=== PATIENT | female | born 1955 | race Caucasian/White ===

== ENCOUNTER 2017-03-06 01:28 | Day surgery (SDC) | payer OTHER ==
[~2017-03-06] VITALS: Ht 162.6 cm; Wt 88.0 kg
[~2017-03-06 01:28] MED LIST: CALC600T12 PO; CETI10CA PO; CHOL10008 PO; LISI40TA PO; MAGN400O4 PO; OMEP20CA11 PO; POLY17PO6 PO; PRAV20TA2 PO
[2017-03-06] MEDS ORDERED: Propofol 10,000 mCg/mL 20 mL Inj ONE (01:29)
[2017-03-06] MEDS ORDERED: Lactated Ringer's 1,000 ML IV ONE (06:00)
[2017-03-06 10:17] VITALS: BP 142/72; PULSE 105; RESP 16; O2SAT 97
[2017-03-06] MEDS ORDERED: HYDR12.5 PO (10:26)
--- NOTE | 2017-03-06 10:38 | PCM.HPANE ---
Patient Data Date of Service: March 06, 2017 Surgeon Admitting Provider: Attending Provider:Juan Burr MD Primary Care Physician:Surekha Reyez MD Other Provider:Teena Chin Anesthesia Reason for Visit Colon Polyp Ht/WT & BMI Height (Feet): 5 Height (Inches): 4 Weight (Kilograms): 87.997 Body Mass Index 33.00 Allergies Coded Allergies: hydrocodone (Verified Allergy, Unknown, "makes me weird", 09/10/15) latex (Verified Allergy, Unknown, UNKNOWN, 09/10/15) vancomycin (Verified Adverse Reaction, Severe, N&V,VERTIGO, 09/10/15) Past Anesthesia History Anesthesia History: Denies:: Abnormal Airway, Anesthesia Reactions, Difficult Intubation, Fam Anesthesia Reaction, Fam Malignant Hypertherm, Malignant Hyperthermia Diabetes History Hx Diabetes?: No MRSA MRSA: Yes (all over many years ago ) Medications Blood Thinner: Aspirin Hypertension Medication: Yes Home Meds Incl Beta Aureliano: No Reported Medications Hydrochlorothiazide 12.5 Mg Rxopswe80.5 Mg PO DAILY 30 Days Ref 0 03/06/17 Cetirizine HCl (Zyrtec)10 Mg Bbnqbtn37 Mg PO HS #30 CAPSULE Ref 0 03/05/17 Pravastatin 20 Mg Lkmybw17 Mg PO DAILY Ref 0 03/05/17 Omeprazole 20 Mg Capsule.dr20 Mg PO BID Ref 0 03/05/17 Lisinopril 40 Mg Yznjzm79 Mg PO DAILY 30 Days Ref 0 03/05/17 Discontinued Reported Medications Cholecalciferol (Vitamin D3) (Vitamin D3)1,000 Unit Tab.chew1,000 Unit PO DAILY 03/05/17 Polyethylene Glycol 3350 (Miralax)17 Gm Powd.pack17 Gm PO 03/05/17 Magnesium Hydroxide (Milk of Magnesia)400 Mg/5 Ml Oral.jbci793 Mg PO 03/05/17 Calcium Carbonate (Calcium)600 Mg Tablet1,250 Mg PO DAILY 03/05/17 Calcium Carbonate (Tums)500 Mg Tab.ffqi589 Mg PO PRN PRN UNKNOWN 30 Days 09/05/15 Polyethylene Glycol 3350 (Miralax)17 Gm Powd.pack17 Gm PO DAILY 09/01/15 Magnesium Hydroxide (Milk of Magnesia)400 Mg/5 Ml Oral.aigs431 Mg PO DAILY PRN PRN 09/01/15 Calcium Carb&Cit/Mag12/Vit D3 (Calcium 500 mg Tablet)1 Each Tablet1 Each PO BID 07/21/15 Cholecalciferol (Vitamin D3) (Vitamin D3)1,000 Unit Tab.chew1,000 Unit PO DAILY 05/24/15 Lisinopril 20 Mg Rdzlxt82 Mg PO DAILY 30 Days Ref 0 05/24/15 Discontinued Scripts Ondansetron ODT (Zofran ODT)4 Mg Tablet4 Mg PO Q4H PRN For Nausea #20 TABLET Prov:Roberto Barnett DO 09/10/15 oxyCODONE 5 Mg Capsule5 Mg PO Q4H PRN For Pain #12 CAPSULE Ref 0 Prov:Juan Burr MD 09/08/15 History History of ENT Problems?: No HEENT History: Positive for:: Sinus Problem (HX OF CHRONIC SINUSITIS) TMJ (grinds and clenches teeth) Denies:: Abnormal Airway Cataracts Difficult Intubation Dysphagia Hearing Problem Denture Type: None Teeth Condition: Missing Teeth Hx of Heart Problems?: Yes Cardiovascular History: Positive for:: Hypertension Denies:: AICD Abdominal Aortic Aneurism Atrial Fibrillation Cardiac Surgery Chest Pain Congestive Heart Failure Edema Heart Murmur Irregular Heartbeat Pacemaker Rheumatic Fever Thrombophlebitis Valvular Heart Disease Hx of Respiratory Problem?: No Respiratory History: Denies:: Asthma COPD Cough Dyspnea Emphysema Hemoptysis Oxygen Administration Pneumonia Tuberculosis Use of C-PAP Machine (SNORES) Hx Neurologic Problems?: Yes Neurological History: Positive for:: Headaches Denies:: CVA Multiple Sclerosis Parkinson's Disease Seizures Hx of GI Problems?: Yes Hx of Problems?: No HX of Peritoneal Dialysis: No Female Hx: Positive for:: Problems with Breasts? (S/P lumpectomy) Denies:: Currently Skin History: Positive for:: History Skin Disorders? 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 open - hx MRSA /ECZEMA) Denies:: Pressure Ulcers Hx Musculoskeletal Problems?: Yes Musculoskeletal History: Denies:: Fibromyalgia Joint Replacement Psycho Social History: Denies:: Anxiety Hx Depression Hx Surgeries?: Yes (right colectomy) Hx Any Other Health Problems?: Yes Other History: Denies:: Cancer Endocrine Disease Hospitalization Thyroid Disease History Blood Transfusions: Denies:: Blood Transfusions Hx Diabetes: No Hx Alcohol Use: No (maybe once a year)Hx Substance Use: Yes Smoking Status: Current Every Day Smoker Have You Smoked inLast 12 mo: Yes (QUIT RECENTLY) Stop/Bang Treated for Sleep Apnea?: No Do You Have a CPAP Machine?: No S-Snoring: Do You Snore Loudly: Yes T-Tired: feel tired, fatigued: No O-Obsered: Observed not breath: Yes P-Blood Pressure: treated: Yes B- Body Mass Index > 35 kg/m2: No A- Age over 50: Yes N- Neck Large Circumference: No G- Gender Male: No THAE Total Score: 4 THEA Risk Assessment: High Risk, =/>3 Yes THEA Category 4 OutPt Procedure: Yes Risk Assessment Category Category 1A: Patient has history of documented sleep apnea, and HAS NOT received any narcotic, sedative or anesthesia administration during this stay. Category 1B: Patient has history of documented sleep apnea, and HAS received any narcotic , sedative or anesthesia administration during this stay Category 2: Patient has SUSPECTED Obstructive Sleep Apnea, and HAS received any narcotic , sedative or anesthesia administration during this stay. Category 3: Patient has SUSPECTED Obstructive Sleep Apnea and HAS NOT received narcotic, sedative or anesthesia administration during this stay. Category 4: Outpatient in Procedural Areas with known sleep apnea or who screen positive for High Risk via the STOP/BANG questionnaire. Exam Exam Vital Signs Vital Signs Date Time Temp Pulse Resp B/P Pulse Ox O2 Delivery O2 Flow Rate FiO2 03/06/17 10:17 105 16 142/72 97 Room Air General Appearance: Alert, Oriented X3, Cooperative HEENT/AIRWAY: MP 3, Neck Movement, Mouth Opening (Wide) Lungs: Clear to Auscultation, Normal Air Movement Heart: Regular Rate/Rhythm, Normal S1, Normal S2 Meds/Labs/Diagnostics Admission Meds Current Medications Lactated Ringer's (Lr) 1,000 ml @ 10 mls/hr Q24H ONCE IV Last administered on 03/06/17t 10:22; Start 03/06/17 at 06:00; Stop 03/07/17 at 05:59 Plan Impression Patient chart reviewed, patient interviewed and anesthestic plan with risks, benefits, and alternatives discussed, and informed consent obtained. NPO per Anesth. Guidelines: Yes ASA Physical Status: ASA2 Mod Systemic Disease Anesthetic Plan: MAC Bene/Risks/Altern/Consents: Yes HP Complete Prior to Induction: Yes Brian Valentin MD March 06, 2017 10:34
[2017-03-06] MEDS ORDERED: Lactated Ringer's 1,000 ML IV SCH (10:39)
[2017-03-06] MEDS ORDERED: MetoCLOpramide 5 mg/mL 2 mL Inj IVPUSH PRN (10:40)
[2017-03-06] MEDS ORDERED: Ondansetron 2 mg/mL 2 mL Inj IVPUSH PRN (10:40)
[2017-03-06 11:22] VITALS: BP 92/50; PULSE 86; RESP 16; O2SAT 95
--- NOTE | 2017-03-06 11:31 | PCM.ANEP1 ---
Post Anesthesia Phase 1 PACU Phase 1 Assessment Date of Service: March 06, 2017 Vital Signs Vital Signs Date Time Temp Pulse Resp B/P Pulse Ox O2 Delivery O2 Flow Rate FiO2 03/06/17 11:22 35.8 86 16 92/50 95 Room Air 03/06/17 10:17 105 16 142/72 97 Room Air Anesthetic Administered: MAC Level of Alertness: Awake, talking MORRIS's with Equal Strength: Yes Pain: No Nausea or Vomiting: No Cardiovascular Function and Hy: Yes Oxygen Delivery: Room Air Lungs: Normal Air Movement Dermatome Level: Full Sensation Complications: No Follow up Care: No Patient Instructions Provided: Yes Brian Valentin MD March 06, 2017 11:31
[2017-03-06 11:32] VITALS: BP 115/74; PULSE 84; RESP 16; O2SAT 99
--- NOTE | 2017-03-06 11:39 | ENDO ---
[address] [address] ENDOSCOPY PROCEDURE PATIENT: MIRLANDE RIOS : 1955 MR#: [id number] ADMIT: 03/06/2017 JOB ID: [id number] DATE: 03/06/2017 PREOPERATIVE DIAGNOSIS(ES): History of tubulovillous adenoma of the cecum. POSTOPERATIVE DIAGNOSIS: Sigmoid colon polyp. OPERATION: Colonoscopy to ileocolonic anastomosis with cold forceps polypectomy. SURGEON: Juan Burr M.D. INDICATIONS: A 62-year-old female, who 16 months ago had a laparoscopic right colectomy for an unresectable tubulovillous adenoma of the cecum. She is here for follow up colonoscopy. FINDINGS: She had a good prep. The scope was advanced into the terminal ileum. The only abnormality was a 2-3 mm polyp identified in the sigmoid colon that was biopsied with cold forceps and sent to Pathology. Retroflexed views of the rectum were normal. DESCRIPTION OF PROCEDURE: The procedure and sedation plan was discussed with the patient and nursing staff, and a procedural time-out was held. Dr. Jimmy Valentin from anesthesia provided sedation. A digital rectal examination was performed. Then the Olympus PCF H 180 AL video colonoscope was passed transanally, advanced into the terminal ileum, withdrawn with results of procedures as discussed above. The patient tolerated the procedure well. There were no apparent complications. IMPRESSION: Sigmoid colon polyp. RECOMMENDATIONS: Colonoscopy five years.
--- NOTE | 2017-03-07 14:47 | PATH ---
SURGICAL PATHOLOGY Attending Physician:Andrae Hebert CASE STATUS: Signed Out PATIENT NAME: MIRLANDE RIOS PID: [id number] : 1955 DATE COLLECTED:03/06/2017 17:05 SPECIMEN: Colon, Biopsy CLINICAL HISTORY: 1. SIGMOID COLON POLYP FINAL DIAGNOSIS: Sigmoid Colon, Polyp, Biopsy: Superficial portions of colorectal mucosa x2, one with a prominent lymphoid aggregate, with no significant histomorphologic abnormality. ICD10: K63.5 GROSS DESCRIPTION: The specimen is received in one formalin filled container labeled with the patient's name, sublabeled "sigmoid colon polyp" and consists of 2 portions of tissue which aggregate to 0.3 x 0.3 x 0.2 CM. The specimen is entirely submitted in one cassette. 03/06/2017 [facility] ICD-9 CODES: CPT CODES: 1: 40986 Electronically Signed Out Kayla Vazquez MD [facility] Pathology [facility] [address], [place] [address] Technical component performed at [facility], [address], [place], [address]
== END 2017-03-06 23:59 | disposition home or self-care (01) ==
LOC: END 01:28
PROVIDERS: ATTEND Surgery
DX: Z12.11 Encounter for screening for malignant neoplasm of colon (principal); Z86.010 Personal history of colon polyps; K63.5 Polyp of colon; I10 Essential (primary) hypertension; K58.1 Irritable bowel syndrome with constipation; Z79.82 Long term (current) use of aspirin; Z87.891 Personal history of nicotine dependence
CPT/HCPCS: 45380; J7120